=== PATIENT | female | born 1955 | race Caucasian/White ===

== ENCOUNTER → 2021-12-29 | Outpatient (CLI) | payer MEDICARE, MEDICAID, SELFPAY ==
--- NOTE | 2021-12-29 08:54 | RAD_ITS ---
STUDY: X-RAY - ESOPHAGUS (BARIUM SWALLOW) WITH FLUOROSCOPY REASON FOR EXAM: Female, 66 years old. Dysphagia, cough, gerd TECHNIQUE: 15 view(s) of the esophagus were obtained following swallowing of barium. FLUOROSCOPY TIME (if supplied): (25 seconds) minutes/seconds COMPARISON: None. FINDINGS: There is no demonstrated esophageal foreign body. There is no demonstrated stricture or mucosal abnormality. Normal gastroesophageal junction, without a demonstrated hiatal hernia. The patient ingested a 12 mm tablet of barium without any difficulty. There is atherosclerotic calcification of the aortic arch with tortuosity of the descending aorta. Normal visualized pulmonary parenchyma. There are degenerative changes of the visualized thoracic spine. RAD/Esophagus Dual Contrast IMPRESSION: Normal plain film x-ray examination (barium swallow) of the esophagus. Electronically Signed: Roverto Fox MD at 11:06 EDT ,
== END | disposition home or self-care (01) ==
PROVIDERS: PCP Physician Assistant; Referring Provider Nurse Practitioner Adult Health; Visit Provider Nurse Practitioner Adult Health
DX: R13.10 Dysphagia, unspecified (principal); R05.3 Chronic cough
CPT/HCPCS: 74221

== ENCOUNTER → 2022-01-06 | Outpatient (CLI) | payer MEDICARE, MEDICAID, SELFPAY ==
--- NOTE | 2022-01-06 12:54 | CT_ITS ---
STUDY: CT ABDOMEN AND PELVIS WITH CONTRAST REASON FOR EXAM: Female, 66 years old. large tubular adenomas, bowel change -- oral and iv RADIATION DOSAGE (If Supplied By Facility): CTDIvol = ( 18.83 ) mGy, DLP = ( 1156.84 ) mGycm TECHNIQUE: Transaxial images were obtained from the dome of the diaphragm to the symphysis pubis without oral contrast. Oral and amp; IV Readi-CAT and amp; 100mL Isovue-300 was administered. Sagittal and coronal images were reconstructed. Individualized dose optimization techniques were used for this CT. COMPARISON: None. FINDINGS: Lung bases clear. A few subcentimeter hypodensities scattered in the liver, too small to characterize and likely representing simple cysts. Tiny stones in the gallbladder. Unremarkable spleen, pancreas, and adrenals. Subcentimeter cortical hypodensities in the bilateral kidneys, probably simple cysts but too small to fully characterize. Bilateral renal pelviectasis. Normal appendix. Apparent mild circumferential wall thickening of the ascending and transverse colon, due to incomplete distention or acute colitis. Bowel loops nonobstructed. No free air or free fluid. No adenopathy. Minimal vascular calcification. No abdominal aortic aneurysm. Sections through the pelvis demonstrate no adnexal mass. Urinary bladder incompletely distended. Mild multilevel thoracolumbar spondylosis. Mild osteoarthritis of the bilateral hip joints. CT/Abdomen/Pelvis WITH Contrast IMPRESSION: Cholelithiasis. Apparent mild circumferential wall thickening of the ascending and transverse colon, due to incomplete distention or infectious/inflammatory colitis. Electronically Signed: Da Sorenson MD at 0:47 EDT ,
[2022-01-06 13:11] LABS: CREATININE FINGERSTICK < 0.9 mg/dL (0.55-1.02); EGFR FINGERSTICK > 60.0000 mL/min (>60)
== END | disposition home or self-care (01) ==
PROVIDERS: PCP Physician Assistant; Referring Provider Nurse Practitioner Adult Health; Visit Provider Nurse Practitioner Adult Health
DX: D12.6 Benign neoplasm of colon, unspecified (principal); R19.5 Other fecal abnormalities
CPT/HCPCS: 74177; Q9967

== ENCOUNTER 2022-04-07 09:55 | Day surgery (SDC) | payer MEDICARE, MEDICAID, SELFPAY ==
[2022-04-07 10:54] VITALS: BP 138/76; PULSE 86; RESP 16; TEMP 36.6; O2SAT 95; BMI 34.8
[2022-04-07] MEDS: Lactated Ringers 1,000 ML 15 ML IV (11:02)
--- NOTE | 2022-04-07 11:28 | PCM.HP.BLA ---
History and Physical Date of Admission: 04/07/22 6 F who presents to the office today for 6 week follow up. She established on 12/23/21 for GERD not controlled with PPI--takes omeprazole 40 mg QAM and famotidine 20 mg qpm; as well as for positive Cologuard, hx tubular adenoma, and possible large polyp left in the colon by an outside provider. We got CT abd pel which shows possible inflammation in ascending and transverse colon. My intention was to see how colon looked on colonoscopy, but unfortunately there was miscommunication and she cancelled her EGD and colonoscopy. She thinks she gets urgent diarrhea for a couple of days after getting ibandronate. Tends to be constipated, doesn't take anything for it, usually has BM every morning. No melena or hematochezia. No abd pain. Chronic cough waxes and wanes, not clear if due to acid reflux. C/o increasing sinus pain and congestion; saw an investigative assistant, no allergies; would like to see ENT. She has intermittent dysphagia, intermittent swallowing difficulty. We increased omeprazole 40 mg to BID and held famotidine, reports this is more effective, less reflux and less cough. 01/29/22 Labs from Rheum for GCA w/ PMR: Sed rate 40, creatinine 0.74, CRP 2.4, normal CBC, ALT 26, AST 18 She was on prednisone 60 mg daily for over a year for giant cell arteritis with PMR; has a new instrument sterilizer who is tapering the prednisone, now on 9 mg daily. Gained 50 lbs on steroids. 09/10/21 screening colonoscopy secondary to hx of large adenomatous polyp in 2020--tubular adenoma incompletely removed from cecum by general surgeon. Pt states the general surgeon found a large polyp in 2020, tattooed it so he could remove it in 2021. She says in 2021 he told her she has another one that is too large to remove. ?09/2021 positive Cologuard She was scheduled for cholecystectomy with Dr Kaur but then surgery was cancelled when she started steroids for arteritis. Had US at [place]. ROS Const Constitutional: Positive for weight change; No fatigue ENT ENT: No difficulty swallowing Gastro GI: Positive for bloating, diarrhea, heartburn, excessive flatus and nausea/dyspepsia; No abdominal pain, belching, change in bowel habits, change in stool character, coffee ground emesis, constipation, cramping, difficulty swallowing, feeling full early, incontinent of stools, Vomiting blood/hematemesis, Blood in stool, loose stools, Black,tarry stools, pain with swallowing, vomiting or other Musc Musculoskeletal: Positive for stiffness; No joint pain Skin Skin: No yellowing of the eye or itchy eyes Psych Psychiatric: Positive for anxiety and No depression Endo Endocrine: Positive for weight change; No fatigue Aller/Imm Allergy/Immunologic: No itchy eyes Jimbo/Lymp Hematologic/Lymphatic: No easy bleeding or easy bruising Exam Const General: cooperative and comfortable Nutritional Appearance: obese Orientation: alert, awake and oriented x3 Quality Reporting Tobacco Screening ([facility] 138) Smoking Status: Never smoker Assessment and Plan Assessment and Plan (1) Dysphagia: ?Status:?Acute ?Plan: Reschedule her for EGD and colonoscopy. EGD to evaluate for esophageal stricture, esophagitis, Hartmann's. Colonoscopy to f/u positive cologuard, hx tubular adenoma, and possible large polyp left behind by outside provider. Can try imodium when she has diarrhea after getting ibandronate Continue PPI BID (2) Positive colorectal cancer screening using Cologuard test: ?Status:?Acute ?Plan: see above (3) Tubular adenoma of colon: ?Status:?Acute ?Plan: Referral to ENT per pt request (4) Sinus congestion: ?Status:?Acute ?Plan: as above (5) Chronic cough: ?Status:?Chronic ?Plan: as above ? ? ? Orders: Referrals Ears, Nose and Throat ? R05.3 - Chronic cough, R09.81 - Nasal congestion ? I have examined the patient and the H&P has been reviewed. There are no clinical changes since date of exam.
--- NOTE | 2022-04-07 11:45 | EGD_PTH ---
PATIENT: PETER JONES LOC: EN U#:[id number] AGE/SX: 66/F ROOM: RE04/07/[address]: Dr. Ramón Posey DO : 1955 BED: DIS: 04/07/2022 SPEC #: [id number] RECD: 04/07/22 12:42 STATUS: ERVIN PAULA #: [id number] JUAN MANUEL: 04/07/22 11:[address]: Ramón Posey DEPT: SURGICAL PATHOLOGY RECD BY: Dee Mejia ENTERED: 04/07/22 13:27 SP TYPE: EGD BIOPSY OTHR DR: MU Longoria Tissues: A - Duodenum, NOS B - Esophagus, NOS C - Cecum, NOS D - Cecum, NOS E - Ascending colon F - Sigmoid colon biopsy G - Sigmoid colon biopsy H - Rectum, NOS Procedures: Special Stain Group II Surgery Specimen Level IV Alcian Blue/PAS (control) HEADER OPERATION: Colonoscopy, EGD (MAC), biopsy, polypectomy PRE-OP DIAGNOSIS: Dysphagia, positive Cologuard, tubular adenoma of colon TISSUE SUBMITTED: A ? Duodenum biopsy, B ? Distal esophagus biopsy, C ? Cecal polyp, D ? Ileocecal polyp biopsy, E ? Ascending polyp, F ? Sigmoid polyp, G ? Sigmoid and rectum biopsy, H ? Rectal polyp MICROSCOPIC DIAGNOSIS A. Duodenum, biopsy: Fragments of duodenal mucosa, no pathologic diagnosis. B. Distal esophagus, biopsy: Fragments of gastroesophageal mucosa with chronic inflammation. Intestinal metaplasia (goblet cell metaplasia) not identified. C. Cecal polyp, polypectomy: Fragments of tubular adenoma. D. Ileocecal wall polyp, biopsy: Fragments of tubular adenoma. E. Ascending colon polyp, polypectomy: Tubular adenoma. F. Sigmoid polyp, polypectomy: Tubular adenoma. G. Sigmoid and rectum, biopsy: Fragments of colonic mucosa, no pathologic diagnosis. H. Rectal polyp, polypectomy: Tubular adenoma. SJ:rg 04/08/2022 COMMENT B. Alcian blue/PAS stain with matched control is used in the evaluation of the specimen. MICROSCOPIC DESCRIPTION Slides are reviewed. GROSS DESCRIPTION A - Received in fixative is one container labeled with the patient's name and designated duodenum biopsy. The specimen consists of two irregular fragments of light morel soft tissue that in aggregate measure 0.6 x 0.3 x 0.1 cm. The specimen is totally submitted in one cassette. B - Received in fixative is one container labeled with the patient's name and designated distal esophagus biopsy. The specimen consists of two irregular fragments of light morel soft tissue that in aggregate measure 0.5 x 0.3 x 0.1 cm. The specimen is totally submitted in one cassette. C - Received in fixative is one container labeled with the patient's name and designated cecum polyp. The specimen consists of multiple irregular fragments of light morel soft tissue that in aggregate measure 1.5 x 1.5 x 0.3 cm. The specimen is totally submitted in one cassette. D - Received in fixative is one container labeled with the patient's name and designated ileocecal polyp. The specimen consists of multiple irregular fragments of light morel soft tissue that in aggregate measure 1 x 0.5 x 0.1 cm. The specimen is totally submitted in one cassette. E - Received in fixative is one container labeled with the patient's name and designated ascending polyp. The specimen consists of two irregular fragments of light morel soft tissue that in aggregate measure 0.8 x 0.5 x 0.3 cm. The specimen is totally submitted in one cassette. F - Received in fixative is one container labeled with the patient's name and designated sigmoid polyp. The specimen consists of a morel-pink polyp measuring 0.8 x 0.6 x 0.5 cm. The specimen is bisected and submitted entirely in one cassette. G - Received in fixative is one container labeled with the patient's name and designated sigmoid rectum biopsy. The specimen consists of multiple irregular fragments of light morel soft tissue that in aggregate measure 1 x 0.3 x 0.1 cm. The specimen is totally submitted in one cassette. H - Received in fixative is one container labeled with the patient's name and designated rectal polyp. The specimen consists of a morel-pink polyp measuring 0.5 x 0.3 x 0.2 cm. / SJ:rg 04/07/2022 TC:1 CPT: 85339 x8, 98110
[2022-04-07 12:25] VITALS: BP 111/71; BP 138/76; PULSE 74; RESP 16; TEMP 36.6; O2SAT 96
--- NOTE | 2022-04-07 12:28 | OP.CCLET_ITS ---
04/07/2022 Barbie Lenz Re : Upper GI endoscopy procedure for Marivel Garcia Dear Delfin This procedure was performed on Thursday, April 07, 2022. My impressions and recommendations are as follows: Impressions : - Z-line irregular, 37 cm from the incisors. Biopsied. - Medium-sized hiatal hernia. - Erythematous duodenopathy. Recommendations : - Discharge patient to home. - Resume previous diet. - Continue present medications. - Await pathology results. - Repeat upper endoscopy in 1 year for surveillance based on pathology results. My findings are described in the full procedure note, which is enclosed. If I can be of further assistance, please feel free to contact me at . Sincerely, Ramón Posey, 04/07/2022 12:27:34 PM This report has been signed electronically.
--- NOTE | 2022-04-07 12:28 | OP.EGD_ITS ---
Patient Name: Marivel Garcia Procedure Date: 04/07/2022 11:34 AM Date of : 1955 Age: 66 Procedure: Upper GI endoscopy Indications: Esophageal reflux Providers: DO Daniel Liz MD: Barbie Lenz Medicines: Monitored Anesthesia Care Patient Profile: This is a 66 year old female. Complications: No immediate complications. Procedure: Pre-Anesthesia Assessment: - Prior to the procedure, a History and Physical was performed, and patient medications and allergies were reviewed. The patient is competent. The risks and benefits of the procedure and the sedation options and risks were discussed with the patient. All questions were answered and informed consent was obtained. Patient identification and proposed procedure were verified by the physician. Mental Status Examination: normal. Prophylactic Antibiotics: The patient does not require prophylactic antibiotics. Prior Anticoagulants: The patient has taken no previous anticoagulant or antiplatelet agents. ASA Grade Assessment: II - A patient with mild systemic disease. After reviewing the risks and benefits, the patient was deemed in satisfactory condition to undergo the procedure. The anesthesia plan was to use monitored anesthesia care (MAC). Immediately prior to administration of medications, the patient was re-assessed for adequacy to receive sedatives. The heart rate, respiratory rate, oxygen saturations, blood pressure, adequacy of pulmonary ventilation, and response to care were monitored throughout the procedure. The physical status of the patient was re-assessed after the procedure. After obtaining informed consent, the endoscope was passed under direct vision. Throughout the procedure, the patient's blood pressure, pulse, and oxygen saturations were monitored continuously. The pediatric colonoscope was introduced through the mouth, and advanced to the second part of duodenum. The upper GI endoscopy was accomplished without difficulty. The patient tolerated the procedure well. Scope In: 11:40:51 AM Scope Out: 11:46:13 AM Total Procedure Duration Time 0 hours 5 minutes 22 seconds Findings: The Z-line was irregular and was found 37 cm from the incisors. Biopsies were taken with a cold forceps for histology. Verification of patient identification for the specimen was done. Estimated blood loss was minimal. A medium-sized hiatal hernia was present. The cardia and gastric fundus were normal on retroflexion. The exam of the stomach was otherwise normal. Patchy mildly erythematous mucosa without active bleeding and with no stigmata of bleeding was found in the duodenal bulb. A moderate Schatzki ring was found in the upper third of the esophagus and in the middle third of the esophagus. A guidewire was placed and the scope was withdrawn. Dilation was performed with a Savary dilator with no resistance at 45 Fr. The dilation site was examined and showed moderate improvement in luminal narrowing. Estimated blood loss was minimal. Impression: - Z-line irregular, 37 cm from the incisors. Biopsied. - Medium-sized hiatal hernia. - Erythematous duodenopathy. Recommendation: - Discharge patient to home. - Resume previous diet. - Continue present medications. - Await pathology results. - Repeat upper endoscopy in 1 year for surveillance based on pathology results. Procedure Code(s): --- Professional --- 24943, Esophagogastroduodenoscopy, flexible, transoral; with insertion of guide wire followed by passage of dilator(s) through esophagus over guide wire 68486, 59, Esophagogastroduodenoscopy, flexible, transoral; with biopsy, single or multiple CPT copyright 2017 [employer]. All rights reserved. The codes documented in this report are preliminary and upon change control analyst review may be revised to meet current compliance requirements. Ramón Posey DO 04/07/2022 12:27:34 PM This report has been signed electronically. Number of Addenda: 0 Note Initiated On: 04/07/2022 11:34 AM
[2022-04-07 12:30] VITALS: BP 125/74; BP 138/76; PULSE 72; RESP 16; O2SAT 97
[2022-04-07 12:35] VITALS: BP 130/70; BP 138/76; PULSE 72; RESP 16; O2SAT 97
--- NOTE | 2022-04-07 12:35 | OP.CCLET_ITS ---
04/07/2022 Barbie Lenz Re : Colonoscopy procedure for Marivel Garciadwayne Lenz This procedure was performed on Thursday, April 07, 2022. My impressions and recommendations are as follows: Impressions : - Localized mild inflammation was found in the rectum, in the recto-sigmoid colon and in the sigmoid colon secondary to colitis. Biopsied. - Six 1 to 2 mm polyps in the rectum, in the sigmoid colon, in the ascending colon and in the cecum, removed with a hot snare. Resected and retrieved. - Diverticulosis in the recto-sigmoid colon and in the sigmoid colon. - One 5 mm polyp at the ileocecal valve, removed with a jumbo cold forceps. Resected and retrieved. Treated with a heater probe. Recommendations : - Repeat colonoscopy in 3 years for surveillance. - Continue present medications. My findings are described in the full procedure note, which is enclosed. If I can be of further assistance, please feel free to contact me at . Sincerely, Ramón Posey, 04/07/2022 12:34:56 PM This report has been signed electronically.
--- NOTE | 2022-04-07 12:35 | OP.COLON_ITS ---
Patient Name: Marivel Garcia Procedure Date: 04/07/2022 11:46 AM Date of : 1955 Age: 66 Procedure: Colonoscopy Indications: For therapy of adenomatous polyps in the colon Providers: Ramón Posey DO Referring MD: Barbie Lenz Medicines: Monitored Anesthesia Care Patient Profile: This is a 66 year old female. Refer to note in patient chart for documentation of history and physical. Last Colonoscopy: 1 year ago. Complications: No immediate complications. Procedure: Pre-Anesthesia Assessment: - Prior to the procedure, a History and Physical was performed, and patient medications and allergies were reviewed. The patient is competent. The risks and benefits of the procedure and the sedation options and risks were discussed with the patient. All questions were answered and informed consent was obtained. Patient identification and proposed procedure were verified by the physician. Mental Status Examination: normal. Prophylactic Antibiotics: The patient does not require prophylactic antibiotics. Prior Anticoagulants: The patient has taken no previous anticoagulant or antiplatelet agents. ASA Grade Assessment: II - A patient with mild systemic disease. After reviewing the risks and benefits, the patient was deemed in satisfactory condition to undergo the procedure. The anesthesia plan was to use monitored anesthesia care (MAC). Immediately prior to administration of medications, the patient was re-assessed for adequacy to receive sedatives. The heart rate, respiratory rate, oxygen saturations, blood pressure, adequacy of pulmonary ventilation, and response to care were monitored throughout the procedure. The physical status of the patient was re-assessed after the procedure. After I obtained informed consent, the scope was passed under direct vision. Throughout the procedure, the patient's blood pressure, pulse, and oxygen saturations were monitored continuously. The pediatric colonoscope was introduced through the anus and advanced to the terminal ileum. The colonoscopy was performed without difficulty. The patient tolerated the procedure well. The quality of the bowel preparation was good. Scope In: 11:48:56 AM Scope Withdrawal Time 0 hours 24 minutes 34 seconds Scope Out: 12:16:13 PM Total Procedure Duration Time 0 hours 27 minutes 17 seconds Findings: Localized mild inflammation characterized by congestion (edema) and erythema was found in the rectum, in the recto-sigmoid colon and in the sigmoid colon. Biopsies were taken with a cold forceps for histology. Verification of patient identification for the specimen was done. Estimated blood loss was minimal. Six sessile polyps were found in the rectum, sigmoid colon, ascending colon and cecum. The polyps were 1 to 2 mm in size. These polyps were removed with a hot snare. Resection and retrieval were complete. Verification of patient identification for the specimen was done. Estimated blood loss was minimal. Many small and large-mouthed diverticula were found in the recto-sigmoid colon and sigmoid colon. A 5 mm polyp was found in the ileocecal valve. The polyp was sessile. The polyp was removed with a jumbo cold forceps. Resection and retrieval were complete. Coagulation for destruction of remaining portion of lesion using heater probe was successful. Estimated blood loss was minimal. Three sessile polyps were found in the cecum. The polyps were 1 to 2 mm in size. Fulguration to ablate the lesion by monopolar probe was successful. Impression: - Localized mild inflammation was found in the rectum, in the recto-sigmoid colon and in the sigmoid colon secondary to colitis. Biopsied. - Six 1 to 2 mm polyps in the rectum, in the sigmoid colon, in the ascending colon and in the cecum, removed with a hot snare. Resected and retrieved. - Diverticulosis in the recto-sigmoid colon and in the sigmoid colon. - One 5 mm polyp at the ileocecal valve, removed with a jumbo cold forceps. Resected and retrieved. Treated with a heater probe. Recommendation: - Repeat colonoscopy in 3 years for surveillance. - Continue present medications. Procedure Code(s): --- Professional --- 82092, Colonoscopy, flexible; with ablation of tumor(s), polyp(s), or other lesion(s) (includes pre- and post-dilation and guide wire passage, when performed) 18617, 59, Colonoscopy, flexible; with removal of tumor(s), polyp(s), or other lesion(s) by snare technique 73148, 59, Colonoscopy, flexible; with biopsy, single or multiple CPT copyright 2017 [employer] [place] [employer]. All rights reserved. The codes documented in this report are preliminary and upon media traffic manager review may be revised to meet current compliance requirements. Ramón Posey DO 04/07/2022 12:34:56 PM This report has been signed electronically. Number of Addenda: 0 Note Initiated On: 04/07/2022 11:46 AM
[2022-04-07 12:40] VITALS: BP 132/70; BP 138/76; PULSE 71; RESP 16; TEMP 36.8; O2SAT 95
[2022-04-07 13:05] VITALS: BP 138/76
== END 2022-04-07 13:16 | disposition home or self-care (01) ==
LOC: EN 09:55 → AC 09:56
PROVIDERS: PCP Physician Assistant; Referring Provider Physician Assistant; Visit Provider Internal Medicine Gastroenterology
PROC: 0DJD8ZZ Inspection of Lower Intestinal Tract, Via Natural or Artificial Opening Endoscopic (ICD-10-PCS; CPT 45378; principal; 2022-04-07 11:40)
DX: D12.8 Benign neoplasm of rectum (principal); D12.7 Benign neoplasm of rectosigmoid junction; D12.5 Benign neoplasm of sigmoid colon; D12.2 Benign neoplasm of ascending colon; D12.0 Benign neoplasm of cecum; K44.9 Diaphragmatic hernia without obstruction or gangrene; K22.2 Esophageal obstruction; K57.30 Diverticulosis of large intestine without perforation or abscess without bleeding; K63.89 Other specified diseases of intestine; K31.89 Other diseases of stomach and duodenum; G47.33 Obstructive sleep apnea (adult) (pediatric); E66.9 Obesity, unspecified; F41.9 Anxiety disorder, unspecified; E78.00 Pure hypercholesterolemia, unspecified; I10 Essential (primary) hypertension; Z79.899 Other long term (current) drug therapy
CPT/HCPCS: 45385; 45388; 45380; 43239; 43248; 88305; 88313; J7120; J2405

== ENCOUNTER 2022-05-18 10:33 | Day surgery (SDC) | payer MEDICARE, MEDICAID, SELFPAY ==
[2022-05-18] VITALS (11 sets, daily range): BP systolic 111–139; BP diastolic 47–71; PULSE 62–84; RESP 16–18; TEMP 36.3–36.7; O2SAT 84–96; BMI 34.8
[2022-05-18 11:07] LABS: Hematocrit 40.2 % (37-47); Hemoglobin 12.9 g/dL (12.0-15.0); Mean Corp Hgb Conc 32.1 g/dL (32-36); Mean Corpuscular Hgb 27.6 pg (27.0-32.0); Mean Corpuscular Volume 85.9 fL (81-99); Mean Platelet Vol. 10.6 fl (6.2-12.0); Platelet Count 328 K/mm3 (150-450); RBC Distribution Width CV 15.2 % (11.6-14.6); RBC Distribution Width SD 47.5 fl (35.1-43.9); Red Blood Count 4.68 M/mm3 (4.2-5.4); White Blood Count 7.7 K/mm3 (4.4-11.0)
[2022-05-18] MEDS: Lactated Ringers 1,000 ML 15 ML IV (11:07)
[2022-05-18 11:17] LABS: Anion Gap 9 (5-15); BUN 20 mg/dL (7-18); BUN/Creat Ratio 29.5 RATIO (10-20); Calcium,Total 9.3 mg/dL (8.5-10.1); Chloride 106 mmol/L (98-107); Creatinine, Serum 0.68 mg/dL (0.55-1.02); EST Glomerular Filtration Rate 92 mL/min (>60); Est Glom Filt Rate - Afr Amer 111 mL/min (>60); Estimated Creatinine Clearance 47.14 ml/min; Glucose 103 mg/dL (74-106); Potassium 3.1 mmol/L (3.5-5.1); Sodium Level 142 mmol/L (136-145)
--- NOTE | 2022-05-18 12:16 | HP.PCM_ITS ---
History and Physical Date of Admission: 05/18/22 Date of Service:? 04/30/22 MR#: [id number] Acct: [id number] Name:PETER ESTRADA Rep #: [id number] : 1955 ? ? Provider: Dr. Albina Pressley MD Age/Sex:? 66/F ? ? [place] [facility] [place] Status: Signed Intake Intake Visit Reasons:?RUQ PAIN, CALCULUS OF GALLBLADDER Chief Complaint: RUQ pain Advertisement Distributor Required: No Is patient in pain?: Yes (RUQ) Allergies No Known Allergies Allergy (Unverified 05/11/22 14:07) Medications famotidine 20 mg tablet 20 mg PO 1500 11/11/21 [History Confirmed 05/11/22] hydrochlorothiazide 25 mg tablet 25 mg PO DAILY 11/11/21 [History Confirmed 05/11/22] hydroxyzine HCl 25 mg tablet 25 mg PO QHS 11/11/21 [History Confirmed 05/11/22] ibandronate 150 mg tablet 150 mg PO Q30D 11/11/21 [History Confirmed 05/11/22] leflunomide 20 mg tablet 20 mg PO DAILY 11/11/21 [History Confirmed 05/11/22] losartan 100 mg tablet 100 mg PO DAILY 11/11/21 [History Confirmed 05/11/22] potassium chloride 20 mEq tablet,extended release(part/cryst) (Klor-Con M) 20 meq PO DAILY 11/11/21 [History Confirmed 05/11/22] pravastatin 20 mg tablet 20 mg PO QHS 11/11/21 [History Confirmed 05/11/22] prednisone 20 mg tablet 5 mg PO DAILY 12/23/21 [History Confirmed 05/11/22] omeprazole 40 mg capsule,delayed release 40 mg PO QAM 04/20/22 [History Confirmed 05/11/22] [facility] Medical History?(Updated 05/11/22 @ 14:16 by Bela Santiago) Anemia Anxiety Arthritis Chronic cough CPAP (continuous positive airway pressure) dependence Elevated C-reactive protein (CRP) Elevated ferritin Elevated rheumatoid factor Gastric reflux GERD (gastroesophageal reflux disease) Giant cell arteritis with polymyalgia rheumatica High cholesterol History of diverticulosis History of hiatal hernia History of steroid therapy Hyperlipidemia Hypertension Hypokalemia Leg cramps Loss of hearing Nausea Positive colorectal cancer screening using Cologuard test Tubular adenoma of colon Surgical History?(Updated 05/11/22 @ 14:16 by Bela Santiago) H/O unilateral oophorectomy History of cataract surgery Hx of colonoscopy with polypectomy Family History? Mother CAD (coronary artery disease) Arthritis HypertensionFather CAD (coronary artery disease) Hypertension Social History? Smoking Status:? Never smoker alcohol intake:? current HPI HPI HPI: 66 y/o F presents due to right upper quadrant pain after eating and at night.? Patient states that she gets this pain about 15 to 30 minutes after eating and last for about 2 hours.? She does get nausea denies any vomiting.? Patient does have some reflux with some esophageal burning occasionally?patient is on omeprazole for that.? Patient has been slowly tapering down on her prednisone 1 mg 1 month at a time.? Patient ultrasound did show gallbladder sludge. ROS General General: Yes weight change and fatigue; No appetite, colon cancer, breast cancer or weakness HEENT HEENT: No difficulty swallowing, eye injury, eye surgery, swollen glands or hoarseness Endo Endocrine: No thyroid disease, diabetes mellitus, thyroid cancer, Hair loss, heat intolerance or cold intolerance Skin Skin: No rash or changing moles Breast Breast: No left breast lump, right breast lump, nipple discharge, breast pain, abnormal mammogram, abnormal US or breast enlargement Musc Musculoskeletal: Yes rheumatoid arthritis; No back problems, arthritis, gout or joint pain Cardio Cardiovascular: Yes high blood pressure; No murmur, pacemaker, heart disease, atrial fibrillation, heart attack, heart stent, palpitations, shortness of breat with exertion or chest pain Psych Psychiatric: Yes anxiety; No depression or hearing voices Resp Respiratory: No shortness of breath, Yes sleep apnea, No cough, No COPD, No asthma, No emphysema and No wheezing Gastro Gastrointestinal: Yes abdominal pain, Yes nausea or vomiting, Yes diarrhea, No constipation, No blood in stool, Yes acid reflux, No hemorrhoids, No ulcers, No gallbladder problem and No black,tarry stools Jimbo Hematologic: No blood thinners, No blood disorders, No bleeding, No anemia and No blood clots Neuro Neurologic: No system reviewed and no additional complaints, except as documented, No as per HPI, No abnormal gait, No abnormal hearing, No abnormal movements, No abnormal speech, No behavioral changes, No burning sensations, No confusion, No convulsions, No disequilibrium, No dizziness, No localized weakness, No frequent falls, No headache(s), No lack of coordination, No loss of vision, No memory loss, Yes numbness, No other visual disturbances, No radicular pain, No restless legs, No sensory deficit, No syncope, Yes tingling, No tremor(s), No weakness and No other Exam Const General: cooperative, healthy appearing and no acute distress Nutritional Appearance: well nourished [facility] Head: normal to inspection Resp Effort & Inspection: normal respiratory effort Auscultation: clear to auscultation bilaterally Cardio Rate: regular rate Rhythm: regular rhythm GI Inspection: non-distended Palpation: soft, no guarding, no hernias and tender in the RUQ; with no rebound tenderness Skin General: no rashes or lesions noted Neuro General: patient alert, patient awake and patient oriented x3 Extrem General: no clubbing, cyanosis or edema Psych Affect: normal affect Assessment and Plan Assessment and Plan (1) Cholelithiasis: ?Status:?Acute (2) RUQ pain: ?Status:?Acute Plan Reviewed the anatomy with the patient and discussed the procedure: laparoscopic cholecystectomy with possible cholangiograms, possible open. Review risks including but not limited to bleeding, infection, hernia, bile leak, retained gallstones requiring another procedure ERCP- Endoscopic Retrograde Cholangiopancreatography, injury to another organ (bile ducts, common bile duct, small bowel, etc.) and conversion to an open procedure. All questions were answered. Albina Pressley M.D. Pager: [phone] [facility] [address] [place] [address], [facility], [address] [place] [address] Office: [phone] Coding Level of Care Code Off vis,new,level 3 Diagnoses Cholelithiasis? K80.20 RUQ pain? R10.11 05/18/22 1035 <Electronically signed by Albina Presslye MD> Date Albina Pressley MD
--- NOTE | 2022-05-18 12:35 | GALL_PTH ---
PATIENT: EPTER JONES [place] [facility] [place][id number] AGE/SX: 66/F ROOM: RE05/18/[address]: Dr. Albina Pressley MD : 1955 BED: DIS: 05/18/2022 SPEC #: [id number] RECD: 05/18/22 14:34 STATUS: ERVIN PAULA #: [id number] JUAN MANUEL: 05/18/22 12:[address]: Albina Pressley DEPT: SURGICAL PATHOLOGY RECD BY: Natividad Jack ENTERED: 05/19/22 08:39 SP TYPE: JEWELS GLASGOW DR: MU Longoria Tissues: Gallbladder, NOS Procedures: Surgery Specimen Level III HEADER OPERATION: Laparoscopic cholecystectomy with IOC PRE-OP DIAGNOSIS: Cholelithiasis, RUQ pain TISSUE SUBMITTED: Gallbladder MICROSCOPIC DIAGNOSIS Gallbladder, cholecystectomy: Chronic cholecystitis and cholelithiasis. AM:radha 05/20/2022 MICROSCOPIC DESCRIPTION Slides are reviewed. GROSS DESCRIPTION Received is one container labeled with the patient's name and designated gallbladder. The specimen consists of a gallbladder measuring 6.5 x 3 x 2.6 cm. The external surface is smooth and glistening. Focally, it is granular, hemorrhagic and contains cautery artifact. The lumen of the gallbladder contains greenish-yellow bile and multiple black calculi ranging in size from <0.1 to 0.1 cm in greatest dimension. The gallbladder mucosa is bile-stained and free of mass lesions. The gallbladder wall averages 0.2 cm in thickness and is free of mass lesions. Chronic Disease Manager sections of the gallbladder and the cystic duct at margin of resection are submitted in one cassette. / AM:radha 05/19/2022 TC:3 CPT: 77751
[2022-05-18] MEDS: Cefazolin 2 GM in 0.9% Normal Saline 100 ML IV (12:58)
--- NOTE | 2022-05-18 13:22 | RAD_ITS ---
STUDY: INTRAOPERATIVE CHOLANGIOGRAM. REASON FOR EXAM: Female, 66 years old. Laparoscopic cholecystectomy. FLUOROSCOPY TIME (if supplied): ( 4.7 seconds ) minutes/seconds. A cine loop of 22 images were submitted. TECHNIQUE: An intraoperative cholangiogram was performed by the surgeon. Imaging was submitted. COMPARISON: None. FINDINGS: The intra and extrahepatic biliary ducts are unremarkable. No intraluminal filling defect is seen. There is free flow of contrast into the duodenum. RAD/Cholangiogram/ O R,Initial IMPRESSION: Unremarkable intraoperative cholangiogram. Electronically Signed: Roverto Fox MD at 15:20 EST ,
--- NOTE | 2022-05-18 14:08 | DCINST_ITS ---
Discharge Instructions Diet Discharge Diet: Light diet - advance as tolerated Activity Discharge Activity: May Not Drive (while taking narcotic pain medications.) May shower in (days): 1 Lifting Restrictions: no lifting >20 lbs x 2 wks, no strenuous exercise for 4 wks Dressing / Incision Call your doctor if your incision/area has: Continuous Slow Oozing, Sudden Increased Bleeding, Increased Pain/ Swelling, Increased Redness, Foul Smelling Discharge and Swelling at the incision site Call your doctor if you observe: Fever of 101 or Higher Remove Dressing in: 2 days Cleanse incision/area with: Soap & Water Additional Dressing/Incision Instructions:: Steri-Strips will fall off in 7 to 10 days, if they do not fall off okay to remove after 10 days. Follow Up Care Please Follow Up With: Albina Pressley MD When: Call the office for a follow-up appointment 2 weeks; after 5 PM and on the weekends call [phone] with any concerns. Test Results: Test results from this visit will be discussed in further detail at your follow- up appointment, if applicable. Discharge Plan Admission Attending Provider: Albina Pressley Primary Care Provider: Barbie Lenz Discharge Orders/Prescriptions Prescriptions: New oxycodone-acetaminophen 5-325 mg tablet 1 - 2 tab PO Q6H PRN (Reason: pain) 3 Days Qty: 14 0RF Continued losartan 100 mg tablet 100 mg PO DAILY pravastatin 20 mg tablet 20 mg PO QHS hydrochlorothiazide 25 mg tablet 25 mg PO DAILY hydroxyzine HCl 25 mg tablet 25 mg PO QHS potassium chloride [Klor-Con M20] 20 mEq tablet,ER particles/crystals 20 meq PO DAILY ibandronate 150 mg tablet 150 mg PO Q30D leflunomide 20 mg tablet 20 mg PO DAILY famotidine 20 mg tablet 20 mg PO 1500 prednisone 20 mg tablet 5 mg PO DAILY omeprazole 40 mg capsule,delayed release(DR/EC) 40 mg PO QAM Referrals / Follow Up: Barbie Lenz PA [Primary Care Provider] - Disposition Disposition (needs filled in before D/C Order can be placed): Home, Self Care
[2022-05-18] MEDS: Bupivacaine Mpf 0.5% 30 ML VIAL (14:09)
--- NOTE | 2022-05-18 14:12 | OP.PCM_ITS ---
Report of Operation Date of Procedure: 05/18/22 Pre-Operative Diagnosis: Cholelithiasis, right upper quadrant pain Post-Operative Diagnosis: Same Surgery/Procedure Performed:: Laparoscopic cholecystectomy with cholangiograms Surgeon: Albina Pressley bus and trolley dispatcher: Iris Vargas Type of Anesthesia: General/Supplemental Anesthesiologist: Hari Aaron Special Medications: Ancef 2 g IV x1 Specimen's removed: Gallbladder Estimated Blood Loss (mL): < 10 cc Description of Procedure: Indications: this is a 66 year-old female who developed abdominal pain/nausea/vomiting and on workup was found to have cholelithiasis, with a normal common bile duct. Laparoscopic cholecystectomy was elected. Description procedure: The patient was placed on operating table in supine position. A timeout was completed verifying correct patient, procedure, site, position and special equipment prior to beginning procedure. General Anesthesia was induced. The abdomen was prepped and draped in usual sterile fashion. An incision was made in the natural skin line above the umbilicus. The fascia was elevated and incised. The peritoneum was elevated and incised. Entry into the peritoneum was confirmed visually and no bowel was noted in the vicinity of the incision. Wilcox trocar was placed. The abdomen was insufflated with carbon dioxide to a pressure of 12-15 mmHg. Patient tolerated insufflation well. The laparoscope was then inserted and abdomen inspected. No injuries from initial trocar placement were noted. Additional trochars were then inserted in the following locations 5 mm trocar in the epigastrium and 2 more 5 mm trochars along the right costal margin. The abdomen was inspected no abnormalities were found. The table is placed in reverse Trendelenburg position with the right side up. The adhesions between the gallbladder and omentum were lysed sharply. The dome of the gallbladder was grasped with atraumatic grasper passed through the lateral port and retracted over the dome of the liver. Infundibulum was then grasped with atraumatic grasper through the midclavicular port and retracted to the right lower quadrant. This maneuver exposed Calot's triangle. The peritoneum overlying the gallbladder infundibulum was then incised and cystic duct and artery identified and circumferentially dissected. Ray catheter was used for cholangiograms. The cholangiogram showed good filling of the common bile duct into the duodenum with no filling defects, good filling of the right and left bile ducts as well. The cystic duct and artery were then doubly clipped and divided close to the gallbladder. The gallbladder then dissected from its peritoneal attachments by electrocautery. Hemostasis was checked and the gallbladder and contained stones were removed using the endoscopic retrieval bag through the umbilical port. The gallbladder is passed off table as specimen. The gallbladder fossa was irrigated with saline and hemostasis obtained. There is no evidence of bleeding from the gallbladder fossa or cystic artery leakage of bile from the cystic duct stump. Secondary trochars removed under direct vision. No bleeding was noted the trocar sites. The laparoscope was withdrawn and umbilical trocar removed. The abdomen was allowed to collapse. The fascia of the 12 mm trocar was closed with a [id number] 0 Vicryl suture. The skin was closed with sutures of 4-0 Monocryl and Steri-Strips. The patient was extubated. The patient tolerated procedure well and was taken to the postanesthesia care unit in stable condition. Complications none
== END 2022-05-18 17:26 | disposition home or self-care (01) ==
LOC: SDC 10:43 → AC 10:44
PROVIDERS: Anesthesiology; PCP Physician Assistant; Referring Provider Surgery; Visit Provider Surgery
PROC: (CPT 47610; principal; 2022-05-18 12:15)
DX: K80.20 Calculus of gallbladder without cholecystitis without obstruction (principal); K83.8 Other specified diseases of biliary tract; R10.11 Right upper quadrant pain; E78.00 Pure hypercholesterolemia, unspecified; I10 Essential (primary) hypertension; K21.9 Gastro-esophageal reflux disease without esophagitis; R05.3 Chronic cough; F41.9 Anxiety disorder, unspecified; Z87.19 Personal history of other diseases of the digestive system; Z90.721 Acquired absence of ovaries, unilateral
CPT/HCPCS: 47563; 00790; 74300; 76000; 80048; 85027; 88304; J7120; J2405